=== PATIENT | female | born 1985 ===

== ENCOUNTER 2018-08-10 05:50 | Inpatient (IN) | payer BC ==
[2018-08-10 06:17] VITALS: BMI 32.1
[2018-08-10] MEDS ORDERED: ceFAZolin 2 GM in Sodium Chloride 0.9% 100 ML IVPB ONE (06:18)
[2018-08-10] MEDS: Lactated Ringer's 1,000 ML IV ONE ×2 (07:15→08:15)
[2018-08-10 07:16] LABS: BASO # 0.1 K/uL (0.0-0.2); BASO % 0.7 % (0.0-2.0); EOS % 0.5 % (0.0-4.0); HEMOGLOBIN 12.1 g/dL (12.0-16.0); LYMPH # 2.1 K/uL (1.0-4.3); LYMPH % 26.3 % (20.0-40.0); MEAN CELL VOLUME 80.6 fl (81.0-99.0); MEAN CORPUSCULAR HEMOGLOBIN 26.2 pg (27.0-31.0); MEAN CORPUSCULAR HGB CONC 32.5 g/dL (33.0-37.0); MEAN PLATELET VOLUME 8.6 fl (7.2-11.7); MONO # 0.7 K/uL (0.0-0.8); MONO % 8.6 % (0.0-10.0); NEUT % 63.9 % (50.0-75.0); NRBC % 0.1 % (0.0-0.0); RBC 4.64 Mil/uL (3.80-5.20); RED CELL DISTRIBUTION WIDTH 18.8 % (11.5-14.5); WHITE BLOOD COUNT 7.8 K/uL (4.8-10.8)
[2018-08-10] MEDS ORDERED: Oxytocin 30 UNIT 30 UNITS/500 ML BAG IV ONE ×2 (07:47)
[2018-08-10] MEDS ORDERED: ceFAZolin IV 2 gm in Dextrose 2 GM/50 ML BAG IVPB ONE (08:00)
[2018-08-10] MEDS ORDERED: OXYTOCIN/0.9 % NS 20 UNIT/1,000 ML BAG IV SCH ×2 (08:00)
[2018-08-10] MEDS ORDERED: Morphine 1 mg/ml preservative-free Inj(Duramorph) ONE (08:09)
[2018-08-10] MEDS ORDERED: ePHEDrine 50 mg/ml Inj ONE ×2 (08:09→08:33)
[2018-08-10] MEDS ORDERED: Oxycodone/Acetaminophen 5/325 mg Tab PO PRN ×2 (08:10→13:40)
[2018-08-10] MEDS ORDERED: EPINEPHrine 1 mg/ml (1:1000) Inj ONE (08:10)
[2018-08-10] MEDS ORDERED: Multivitamin With Minerals Tab PO SCH (09:00)
[2018-08-10 10:48] VITALS: RESP 18
[2018-08-10] MEDS ORDERED: Morphine 1 mg/ml preservative-free Inj(Duramorph) EPI ONE (10:54)
--- NOTE | 2018-08-10 21:41 | OP ---
PROCEDURE DATE: 08/10/2018 PREOPERATIVE DIAGNOSIS: Intrauterine at 39 weeks, previous section x1, for elective repeat section, refused vaginal after section. POSTOPERATIVE DIAGNOSIS: Intrauterine at 39 weeks, previous section x1, for elective repeat section, refused vaginal after section. PROCEDURE: Repeat low transverse section with a Pfannenstiel skin incision. SURGEON: Oskar Bartlett MD ASSEMBLING INSPECTOR: Grayson Ramirez DO ANESTHESIOLOGIST: Ailin Chang MD TYPE OF ANESTHESIA: Spinal. COMPLICATIONS: None. FLUID REPLACEMENT: Lactated Ringer's. DRAINS: Hall to gravity. INDICATIONS: A 33-year-old, previous section x1, for elective repeat . FINDINGS: Female infant, vertex presentation, 9 pounds and 13 ounces. Ovaries and tubes are grossly within normal limits. DESCRIPTION OF PROCEDURE: After informed consent was obtained and signed, the patient was brought to the operating room with IV fluid running. The patient was placed in sitting position once spinal anesthesia was successfully induced, the patient was placed in a dorsal supine position with leftward tilt, prepped and draped in usual sterile fashion. After adequacy of anesthesia was confirmed, a scalpel was used to excise the previous keloid scar. Once the scar was removed, it was sent to Pathology using Bovie. Surgical Pfannenstiel incision was excised down to the underlying fascia and extended bilaterally. Once this was completed, the fascia was grasped superiorly and inferiorly and tented up for the underlying rectal muscle using Bovie cauterization. The rectus muscle was then in midline by sharp and digital dissection using Metzenbaum scissors. The peritoneum was then identified, entered without difficulty, and extended by blunt dissection. Once the rectus muscle was opened, the vesicoperitoneum was identified and entered with Metzenbaum scissors and smooth pickups and bladder flap was created with sharp and digital dissection. Codorus was then placed in front of bladder flap that was slowly created and a scalpel was used to make a transverse uterine incision at the lower uterine segment. The incision was extended by digital extension, was brought to the incision atraumatically. Nares and mouth suctioned. Cord doubly clamped and cut. Baby given to the awaiting blood bank attendant. Cord blood stem cells were patent sterilely and once the connection was complete, was given to the circulating nurse and the placenta was exteriorized and the uterus was cleared of clots and products of conception. The uterus was then closed using 1-0 Vicryl on an interlocking stitch. Good hemostasis was noted. The uterus was returned back to the abdominal cavity after copious irrigation. The peritoneum was closed using 0 Vicryl in a running stitch and the muscle was closed using 0 Vicryl with interrupted suture. The fascia was closed using 0 Vicryl in a running stitch in the midline bilaterally. The skin was closed using a subcuticular stitch of 3-0 Monocryl suture. Steri-Strips were applied and dressings. The patient tolerated the procedure well. All sponge, needle, and equipment count were correct x3, and the patient went to recovery room in stable condition. Oskar Bartlett MD MTDAdrian
--- NOTE | 2018-08-11 07:14 | OBPPN ---
Datetime: 08/11/2018 06:59 PP Pain Prov: Within normal limits PP Nausea Prov: Denies PP Flatus Prov: Yes PP Breasts Prov: Not Done PP Heart Prov: Not Done PP Lungs Prov: Not Done PP Abdomen/Uterus Prov: Normal PP Lochia Prov: Not Done PP Vulva/Perineum Prov: Not Done PP CVA Tenderness Prov: Not Done PP Extremities Prov: Not Done PP C/S Incision Prov: Normal PP Impression Prov: Normal progression PP Plan Prov: Continue present management PP Progress Note Prov: Doing well ambulate regular diet analgesia as needed d/c iVF and stephenson Vital Signs Provider PP: Reviewed
[2018-08-11 07:16] LABS: HEMOGLOBIN 9.9 g/dL (12.0-16.0); MEAN CELL VOLUME 81.1 fl (81.0-99.0); MEAN CORPUSCULAR HEMOGLOBIN 26.6 pg (27.0-31.0); MEAN CORPUSCULAR HGB CONC 32.7 g/dL (33.0-37.0); RBC 3.73 Mil/uL (3.80-5.20); RED CELL DISTRIBUTION WIDTH 18.8 % (11.5-14.5); WHITE BLOOD COUNT 13.3 K/uL (4.8-10.8)
[2018-08-11] MEDS: Multivitamin With Minerals Tab PO SCH (08:02)
[2018-08-11] MEDS ORDERED: Influenza Vaccine 60 mcg/0.5 mL SYR (4YR UP) IM ONE (10:00)
[2018-08-12] MEDS: Multivitamin With Minerals Tab PO SCH (09:00)
[2018-08-12] MEDS ORDERED: Lansinoh for Breast Feeding Mothers TP PRN (12:18)
--- NOTE | 2018-08-12 12:45 | OBPPN ---
Datetime: 08/12/2018 12:35 PP Pain Prov: Within normal limits PP Nausea Prov: Denies PP Flatus Prov: No PP BM Prov: Yes PP Breasts Prov: Normal PP Heart Prov: Normal PP Lungs Prov: Normal PP Abdomen/Uterus Prov: Normal PP Lochia Prov: Normal PP Vulva/Perineum Prov: Normal PP CVA Tenderness Prov: Normal PP Extremities Prov: Normal PP C/S Incision Prov: Normal PP Progress Prov: Normal PP Impression Prov: Normal progression PP Plan Prov: Continue present management PP Progress Note Prov: Encourage ambulation Advance diet D/C to home in the am if stable f/u with Dr Bartlett in 2 week. Pelvic rest in 6weeks. Breast care instruction given. IP PP Procedures: None
[2018-08-13] MEDS: Multivitamin With Minerals Tab PO SCH (08:58)
[2018-08-13 22:15] VITALS: BP 100/75; PULSE 81; TEMP 98.2; O2SAT 97
== END 2018-08-13 14:30 | disposition home or self-care (01) | DRG 788 ==
LOC: H.L&D 05:50 → H.OB/GYN 12:30
PROVIDERS: ADMIT Specialist; ATTEND Specialist
PROC: 10D00Z1 Extraction of Products of Conception, Low, Open Approach (ICD-10-PCS; principal; 2018-08-10)
PROC: 4A1HXCZ Monitoring of Products of Conception, Cardiac Rate, External Approach (ICD-10-PCS; 2018-08-10)
DX: O34.211 Maternal care for low transverse scar from previous cesarean delivery (principal); N85.8 Other specified noninflammatory disorders of uterus; Z37.0 Single live birth; Z3A.39 39 weeks gestation of pregnancy